=== PATIENT | female | born 1995 | race Caucasian/White ===

== ENCOUNTER 2023-04-17 15:49 | Outpatient (CLI) | payer OTHER ==
[~2023-04-17] VITALS: Ht 160 cm; Wt 64.1 kg
--- NOTE | 2023-04-17 16:00 | NUR ---
PT ARRIVES AMBULATORY, SENT OVER FROM CLINIC PER FOR REPORTED DECREASED FHR INTO THE 70'S VIA DOPPLER DURING CLINIC EXAM. DIFFICULTY IN CLINIC GETTING HEART TONES TO RECOVER. PT REPORTS POSITIVE MOVEMENT. DENIES FEELING CONTRACTIONS BUT STATES "THEY SAY I WAS HAVING THEM IN THE CLINIC, BUT I CAN'T FEEL ANYTHING." DENIES LOF OR VB. EFM TRACING CATEGORY 1 TRACING UPON ARRIVAL.
[2023-04-17] MEDS ORDERED: LR 1,000 ML IV PRN (16:15)
[2023-04-17] MEDS ORDERED: PRENATAL (16:20)
[2023-04-17 16:30] VITALS: BP 138/85; PULSE 75; TEMP 98.1
[2023-04-17 17:00] VITALS: BP 122/75; PULSE 68
[2023-04-17 17:30] VITALS: BP 101/61; PULSE 70
[2023-04-17 17:55] VITALS: BP 98/58; PULSE 64
[2023-04-20] MEDS ORDERED: MOTRIN 800800 MG/TAB PO (16:19)
[2023-04-21] MEDS ORDERED: PERCOCET 325 MG1 TA2 PO (08:29)
== END 2023-04-17 18:05 | disposition home or self-care (01) ==
LOC: LDRO 15:49
DX: Z34.93 Encounter for supervision of normal pregnancy, unspecified, third trimester (principal); Z3A.39 39 weeks gestation of pregnancy